=== PATIENT | male | born 1990 | race African-American/Black ===

== ENCOUNTER 2016-08-01 20:19 | Emergency (ER) | payer OTHER ==
[2016-08-01] MEDS ORDERED: ONDANSETRON 4MG/2ML VIAL (J2405) As Ordered ONE ×2 (21:01→21:59)
[2016-08-01 21:21] LABS: BASO # 0.1 K/mm3 (0.0-0.2); BASO % 1.2 % (0.0-1.0); EOS # 0.2 K/mm3 (0.0-0.50); EOS % 2.9 % (0.0-3.0); LARGE UNSTAINED CELL # 0.2 K/mm3 (0.0-0.4); LARGE UNSTAINED CELL % 2.7 % (0.0-4.0); LYMPH # 3.8 K/mm3 (1.5-6.5); MEAN CORPUSCULAR HEMOGLOBIN 26.4 pg (27.0-33.0); MEAN CORPUSCULAR HGB CONC 33.5 g/dl (32.0-36.5); MEAN CORPUSCULAR VOLUME 78.9 fl (80.0-96.0); MONO # 0.3 K/mm3 (0.0-0.8); MONO % 4.5 % (0.0-5.0); NEUTROPHILS # 1.6 K/mm3 (1.8-7.7); NEUTROPHILS % 26.8 % (36.0-66.0); PLATELET COUNT, AUTOMATED 155 k/mm3 (150-450); RED CELL DISTRIBUTION WIDTH 13.7 % (11.5-14.5); WHITE BLOOD COUNT 5.8 K/mm3 (4.0-10.0)
[2016-08-01 21:31] LABS: ALBUMIN/GLOBULIN RATIO 1.14 (1.00-1.93); ALKALINE PHOSPHATASE 83 U/L (45-117); ALT/SGPT 44 U/L (12-78); ANION GAP 9 MEQ/L (8-16); AST/SGOT 94 U/L (15-37); BILIRUBIN,DIRECT 0.2 MG/DL (0.0-0.2); BILIRUBIN,TOTAL 1.2 MG/DL (0.2-1.0); BLOOD UREA NITROGEN 16 MG/DL (7-18); CALCIUM LEVEL 8.3 MG/DL (8.5-10.1); CARBON DIOXIDE LEVEL 28 MEQ/L (21-32); CHLORIDE LEVEL 105 MEQ/L (98-107); GLOMERULAR FILTRATION RATE > 60.0 (>60); GLUCOSE, FASTING 110 MG/DL (70-105); SODIUM LEVEL 142 MEQ/L (136-145); TOTAL PROTEIN 7.5 GM/DL (6.4-8.2)
[2016-08-01] MEDS ORDERED: GASTROGRAFIN SOLUTION 30ML (Q9963) As Ordered ONE (23:16)
[2016-08-02] MEDS ORDERED: ISOVUE-370 76% 100ML VIAL (Q9967) As Ordered ONE (01:12)
[2016-08-02] MEDS ORDERED: POTASSIUM CHLORIDE 10 MEQ SR TABLET As Ordered ONE (02:12)
--- NOTE | 2016-08-02 02:50 | REPUSA ---
CLINICAL HISTORY: Abdominal pain. TECHNIQUE: Multiple axial, sagittal and coronal CT images were obtained through the abdomen and pelvi s after administration of intravenous contrast material. COMMENTS: The liver is of uniform attenuation without mass or defect. There is no intra or extrahepatic biliary ductal dilatation. The spleen is normal. The gallbladder is within normal limits. The pancreas is of normal contour and attenuation characteristics. There is no evidence of adrenal mass. Both kidneys demonstrate prompt and equal nephrograms. The kidneys are normal in size, shape and conf iguration. There is no evidence of renal or ureteral mass. No renal or ureteral calculi are identifie d. There is no hydroureter or hydronephrosis. No evidence for appendicitis. Large amount of fecal material is seen throughout the colon compatible with constipation. There are fluid-filled loops of small bowel bowel demonstrating wall thickening compatible with enteritis. No evidence for small or large bowel obstruction. There is no evidence of abdominal ascites or lymphadenopathy. There is no evidence of intrinsic or extrinsic bladder mass. There is no pelvic ascites or lymphadeno gina. Images of the lung bases show no evidence of pleural or parenchymal mass. There are no pleural effusi ons. The bony structures are free of lytic or blastic lesions. IMPRESSION: Constipation. Enteritis. Thank you for your kind referral of this patient.
--- NOTE | 2016-08-02 04:47 | EDDOCDS ---
Nurse's Notes [facility] Name: Rc Ortiz Age: 26 yrs Sex: Male : 1990 Arrival Date: 08/01/2016 Time: 20:19 Bed 17 Private MD: MSLg ROONEY Diagnosis: Noninfective gastroenteritis and colitis, unspecified Presentation: 08/01 20:28 Presenting complaint: EMS states: ate popeyes around 1600, took at nap and woke up af2 vomiting and diarrhea starting at 1940. Adult Sepsis Screening: The patient does not have new or worsening altered mentation. Patient's respiratory rate is less than 22. Systolic blood pressure is greater than 100. Patient has a qSOFA score of 0- Negative Sepsis Screen. Suicide/Homicide risk assessment- the patient denies having any suicidal and/or homicidal ideations and does not present with any other emotional, behavioral or mental health complaints. 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 Transition of care: patient was not received from another setting of care. 20:28 Acuity: LINA Level 3 af2 20:28 Method Of Arrival: Walkin/Carried/Asstd af2 Triage Assessment: 20:30 General: Appears ill, Behavior is cooperative. Pain: Denies pain. HIV screening NA for af2 this visit . Neurological: Level of Consciousness is awake, alert, obeys commands. Respiratory: Airway is patent Respiratory effort is even, unlabored. GI: Pt is actively vomiting undigested food, Stools are reported to be diarrhea. Derm: Skin is normal. Historical: - Allergies: No known drug Allergies; - Home Meds: 1. none - PMHx: none; - PSHx: umbilical hernia repair; - Social history: Smoking status: Patient states was never smoker of tobacco. No barriers to communication noted, The patient speaks fluent Syrian. - Family history: Not pertinent. - : The pt / caregiver states he / she is not on anticoagulants. Home medication list is obtained from the patient. - Exposure Risk Screening:: None identified. Screenin:00 Screening information is obtained from the patient. Fall risk: No risks identified. af2 Assistance ADL's: requires no assistance with activities of daily living. Abuse/DV Screen: The patient / caregiver reports he/she is: not in a situation that causes fear, pain or injury. Nutritional screening: No deficits noted. Advance Directives: Currently, there is no health care proxy. home support is adequate. Assessment: 20:59 General: Appears in no apparent distress, comfortable, Behavior is appropriate for age, af2 cooperative. GI: Abdomen is non- distended Pt is actively vomiting undigested food, Bowel sounds present X 4 quads. Abd is soft and non tender X 4 quads. Reports diarrhea, nausea, vomiting. Derm: Skin is normal. 22:04 General: pt continues vomiting, providers notified, orders received and pt medicated af2 per order.. 23:04 General: RN found patient sitting up in bed trying to vomit so he was unable to drink kas2 fluids. Dr. Thomas aware.. 08/02 00:00 General: Appears in no apparent distress, comfortable, Behavior is appropriate for age, af2 cooperative. General: resting quietly on stretcher with eyes closed, arouses easily to name.. Neurological: Level of Consciousness is awake, alert, obeys commands. 01:00 General: Appears in no apparent distress, comfortable, Behavior is appropriate for age, af2 cooperative. Neurological: Level of Consciousness is awake, alert, obeys commands. GI: Reports nausea. Derm: Skin is normal. 02:00 General: Appears in no apparent distress, comfortable, Behavior is appropriate for age, af2 cooperative, pt resting quietly on stretcher with eyes closed, rr even and unlabored. pt arouses easily to name. . 03:00 General: Appears in no apparent distress, comfortable, Behavior is appropriate for age, af2 cooperative. Neurological: Level of Consciousness is awake, alert, obeys commands. GI: Reports nausea, vomiting. Derm: Skin is pink, warm & dry. 04:04 General: Appears in no apparent distress, comfortable, Behavior is appropriate for age, af2 cooperative. Neurological: Level of Consciousness is awake, alert, obeys commands. Respiratory: Airway is patent Respiratory effort is even, unlabored. GI: Reports nausea, vomiting. Derm: Skin is normal. 04:45 General: Appears in no apparent distress, comfortable, Behavior is appropriate for age, af2 cooperative. Neurological: Level of Consciousness is awake, alert, obeys commands. Respiratory: Airway is patent Respiratory effort is even, unlabored. Derm: Skin is normal. Vital Signs: 08/01 20:20 Temp 96.6(O); sls1 20:27 BP 151 / 91 LA Sitting (auto/); Pulse 74; Resp 18 S; Pulse Ox 99% on R/A; Pain 0/10; af2 23:00 BP 131 / 80 Supine; Pulse 84 RA; kas2 23:01 BP 148 / 72 Sitting; Pulse 79 RA; kas2 23:01 BP 152 / 71 Standing; Pulse 81 RA; kas2 08/02 03:54 BP 122 / 68; Pulse 66; Resp 20; Temp 96.7(O); Pulse Ox 99% on R/A; Pain 0/10; jmv Vitals: 08/01 20:20 Log In Time N/A - ambulance arrival. [facility] ED Course: 20:20 Lizet Cabezas,YAMILE is Primary Nurse. [facility] 20:20 Patient visited by Apolonia Choi, Chrome Plater. jlm 20:20 [facility], [place] is Private Physician. jl 20:20 Patient moved to [facility] 20:29 Triage Initiated af2 20:30 Patient visited by Monique Birmingham RN. af2 20:45 Amor Thomas MD is Attending Physician. br1 20:51 Patient visited by Amor Thomas MD. br1 20:59 Lipase Sent. af2 20:59 Liver Profile Sent. af2 20:59 BMP Sent. af2 20:59 CBC with Diff Sent. af2 21:00 Patient visited by Monique Birmingham RN. af2 21:00 The patient / caregiver is instructed regarding the plan of care and ED course. af2 21:00 Inserted saline lock: 18 gauge in left antecubital area and blood collected. The af2 patient tolerated the procedure well. 21:52 Patient visited by Monique Birmingham RN. af2 23:04 Patient visited by Monique Birmingham RN. af2 23:05 Patient visited by Lilliana Parker RN. kas2 08/02 00:07 Patient visited by Monique Birmingham RN. af2 00:09 Attending Physician role handed off by Amor Thomas MD mm11 00:09 Jair Higuera DO is Attending Physician. mm11 00:16 Patient name changed from Rc\S\\S\Kamnain\S\ to Rc\S\ \S\Kamnain. EDMS 00:17 [facility] Payment Agreement was scanned into [employer] and attached to record. ks16 00:53 Patient visited by Monique Birmingham RN. af2 01:01 Patient visited by Monique Birmingham RN. af2 02:01 Patient visited by Monique Birmingham RN. af2 02:34 Patient visited by Monique Birmingham RN. af2 02:44 Patient visited by Monique Birmingham RN. af2 02:54 Primary Nurse role handed off by Lizet Cabezas RN jmb 03:10 CT ABD & PELVIS: IV and Oral Contrast Returned. EDMS 03:45 Patient visited by Jair Higuera DO. mm11 03:51 Patient visited by Monique Birmingham RN. af2 03:56 Patient visited by Armani Moncada PCA. jmv 04:05 Patient visited by Monique Birmingham RN. af2 04:26 [facility], [facility] is Referral Physician. mm11 04:46 Discontinued IV lock intact, bleeding controlled, pressure dressing applied, No af2 redness/swelling at site. No procedures done that require assistance. Administered Medications: 08/01 20:59 Drug: NS 0.9% 1000 ml [sodium chloride 0.9 % intravenous solution] Route: IV; Rate: af2 bolus; Site: left antecubital; 21:03 Drug: Ondansetron 4 mg [ondansetron HCl 2 mg/mL intravenous solution (2 mL)] Route: af2 IVP; Site: left antecubital; 21:53 Follow up: Response: No significant change. af2 22:03 Drug: NS 0.9% 1000 ml [sodium chloride 0.9 % intravenous solution] Route: IV; Rate: af2 bolus; Site: left antecubital; 22:04 Drug: Ondansetron 4 mg [ondansetron HCl 2 mg/mL intravenous solution (2 mL)] Route: af2 IVP; Site: left antecubital; 08/02 00:53 Follow up: Response: No significant change. af2 08/01 23:24 Drug: Diatrizoate Meglumine & Sodium 10 ml [diatrizoate meglumine and diat.sodium 66 af2 %-10 % oral solution (10 mL)] Route: PO; 08/02 02:13 Drug: Potassium Chloride 40 mEq [potassium chloride ER 10 mEq tablet,extended release af2 (4 tabs)] Route: PO; Order Results: Lab Order: CBC with Diff; SPEC'M 08/01/16 20:36 Test: WHITE BLOOD COUNT; Value: 5.8; Range: 4.0-10.0; Units: K/mm3; Status: F Test: RED BLOOD COUNT; Value: 4.89; Range: 4.30-6.10; Units: M/mm3; Status: F Test: HEMOGLOBIN; Value: 12.9; Range: 14.0-18.0; Abnormal: Below low normal; Units: g/dl; Status: F Test: HEMATOCRIT; Value: 38.5; Range: 42.0-52.0; Abnormal: Below low normal; Units: %; Status: F Test: MEAN CORPUSCULAR VOLUME; Value: 78.9; Range: 80.0-96.0; Abnormal: Below low normal; Units: fl; Status: F Test: MEAN CORPUSCULAR HEMOGLOBIN; Value: 26.4; Range: 27.0-33.0; Abnormal: Below low normal; Units: pg; Status: F Test: MEAN CORPUSCULAR HGB CONC; Value: 33.5; Range: 32.0-36.5; Units: g/dl; Status: F Test: RED CELL DISTRIBUTION WIDTH; Value: 13.7; Range: 11.5-14.5; Units: %; Status: F Test: PLATELET COUNT, AUTOMATED; Value: 155; Range: 150-450; Units: k/mm3; Status: F Test: NEUTROPHILS %; Value: 26.8; Range: 36.0-66.0; Abnormal: Below low normal; Units: %; Status: F Test: LYMPH %; Value: 62.0; Range: 24.0-44.0; Abnormal: Above high normal; Units: %; Status: F Test: MONO %; Value: 4.5; Range: 0.0-5.0; Units: %; Status: F Test: EOS %; Value: 2.9; Range: 0.0-3.0; Units: %; Status: F Test: BASO %; Value: 1.2; Range: 0.0-1.0; Abnormal: Above high normal; Units: %; Status: F Test: LARGE UNSTAINED CELL %; Value: 2.7; Range: 0.0-4.0; Units: %; Status: F Test: NEUTROPHILS #; Value: 1.6; Range: 1.8-7.7; Abnormal: Below low normal; Units: K/mm3; Status: F Test: LYMPH #; Value: 3.8; Range: 1.5-6.5; Units: K/mm3; Status: F Test: MONO #; Value: 0.3; Range: 0.0-0.8; Units: K/mm3; Status: F Test: EOS #; Value: 0.2; Range: 0.0-0.50; Units: K/mm3; Status: F Test: BASO #; Value: 0.1; Range: 0.0-0.2; Units: K/mm3; Status: F Test: LARGE UNSTAINED CELL #; Value: 0.2; Range: 0.0-0.4; Units: K/mm3; Status: F Lab Order: [facility]; SPEC'M 08/01/16 20:36 Test: GLUCOSE, FASTING; Value: 110; Range: 70-105; Abnormal: Above high normal; Units: MG/DL; Status: F Test: BLOOD UREA NITROGEN; Value: 16; Range: 7-18; Units: MG/DL; Status: F Test: CREATININE FOR GFR; Value: 1.20; Range: 0.70-1.30; Units: MG/DL; Status: F Test: GLOMERULAR FILTRATION RATE; Value: > 60.0; Range: >60; Status: F Test: SODIUM LEVEL; Value: 142; Range: 136-145; Units: MEQ/L; Status: F Test: POTASSIUM SERUM; Value: 3.0; Range: 3.5-5.1; Abnormal: Below low normal; Units: MEQ/L; Status: F Test: CHLORIDE LEVEL; Value: 105; Range: 98-107; Units: MEQ/L; Status: F Test: CARBON DIOXIDE LEVEL; Value: 28; Range: 21-32; Units: MEQ/L; Status: F Test: ANION GAP; Value: 9; Range: 8-16; Units: MEQ/L; Status: F Test: CALCIUM LEVEL; Value: 8.3; Range: 8.5-10.1; Abnormal: Below low normal; Units: MG/DL; Status: F Test Note: ; Units are mL/min/1.73 m2 Chronic Kidney Disease Staging per NKF: Stage I & II GFR >=60 Normal to Mildly Decreased Stage III GFR 30-59 Moderately Decreased Stage IV GFR 15-29 Severely Decreased Stage V GFR <15 Very Little GFR Left ESRD GFR <15 on CORE OVEN TENDER Lab Order: Liver Profile; SPEC'M 08/01/16 20:36 Test: AST/SGOT; Value: 94; Range: 15-37; Abnormal: Above high normal; Units: U/L; Status: F Test: ALT/SGPT; Value: 44; Range: 12-78; Units: U/L; Status: F Test: ALKALINE PHOSPHATASE; Value: 83; Range: 45-117; Units: U/L; Status: F Test: BILIRUBIN,TOTAL; Value: 1.2; Range: 0.2-1.0; Abnormal: Above high normal; Units: MG/DL; Status: F Test: BILIRUBIN,DIRECT; Value: 0.2; Range: 0.0-0.2; Units: MG/DL; Status: F Test: TOTAL PROTEIN; Value: 7.5; Range: 6.4-8.2; Units: GM/DL; Status: F Test: ALBUMIN; Value: 4.0; Range: 3.2-5.2; Units: GM/DL; Status: F Test: ALBUMIN/GLOBULIN RATIO; Value: 1.14; Range: 1.00-1.93; Status: F Lab Order: Lipase; SPEC'M 08/01/16 20:36 Test: LIPASE; Value: 198; Range: 73-393; Units: U/L; Status: F Radiology Order: CT ABD & PELVIS: IV and Oral Contrast Test: CT ABD & PELVIS: IV and Oral Contrast REASON FOR EXAMINATION: vomiting eval for sbo; ; CLINICAL HISTORY: Abdominal pain.; TECHNIQUE: Multiple axial, sagittal and coronal CT images were obtained through the abdomen and pelvi; s after administration of intravenous contrast material.; COMMENTS:; The liver is of uniform attenuation without mass or defect. There is no intra or extrahepatic biliary; ductal dilatation. The spleen is normal. The gallbladder is within normal limits. The pancreas is of; normal contour and attenuation characteristics. There is no evidence of adrenal mass.; Both kidneys demonstrate prompt and equal nephrograms. The kidneys are normal in size, shape and conf; iguration. There is no evidence of renal or ureteral mass. No renal or ureteral calculi are identifie; d. There is no hydroureter or hydronephrosis.; No evidence for appendicitis. Large amount of fecal material is seen throughout the colon compatible; with constipation. There are fluid-filled loops of small bowel bowel demonstrating wall thickening; compatible with enteritis. No evidence for small or large bowel obstruction. There is no evidence of; abdominal ascites or lymphadenopathy.; There is no evidence of intrinsic or extrinsic bladder mass. There is no pelvic ascites or lymphadeno; gina.; Images of the lung bases show no evidence of pleural or parenchymal mass. There are no pleural effusi; ons.; The bony structures are free of lytic or blastic lesions.; IMPRESSION:; Constipation.; Enteritis.; Thank you for your kind referral of this patient.; ; Outcome: 04:26 Discharge ordered by Provider. mm11 04:46 Discharge Assessment: Patient awake, alert and oriented x 3. No cognitive and/or af2 functional deficits noted. Patient verbalized understanding of disposition instructions. patient administered narcotics - no. The following High Risk Discharge criteria are identified: None. Discharged to home ambulatory, with friend. Condition: stable. Discharge instructions given to patient, Instructed on discharge instructions, follow up and referral plans. Demonstrated understanding of instructions, Pt was receptive of discharge instructions/ teaching. CT Study completed. Property :Personal belongings accompany Pt. 04:46 Patient left the ED. af2 Signatures: Dispatcher [employer] EDMS Jair Higuera DO DO mm11 Amor Thomas MD MD brNohemy Hendrix, RN RN sls1 Maged Amanda,RN RN Apolonia Jurado, Chrome Plater Unit Monique Sanchez,RN RN af2 Winsome Abrams, Reg Reg [email or web address] Lilliana Parker,YAMILE RN ryder2 Armani Moncada, MD PHYSICIAN DERMATOLOGIST MD PHYSICIAN DERMATOLOGIST jmv MTDD
--- NOTE | 2016-08-02 04:47 | EDDOCDS ---
Physician Documentation [facility] Name: Rc Ortiz Age: 26 yrs Sex: Male : 1990 Arrival Date: 08/01/2016 Time: 20:19 Bed 17 [facility] Disposition: 08/02/16 04:26 Discharged to Home/Self Care. Impression: Noninfective gastroenteritis and colitis, unspecified. - Condition is Stable. - Discharge Instructions: Viral Gastroenteritis, Viral Gastroenteritis, [id number]. - Prescriptions for Zofran 4 mg Oral Tablet - take 1 tablet by ORAL route 4 times per day As needed; 10 tablet. - Medication Reconciliation, Local Pharmacy Hours form. - [facility]; When: As needed; Reason: Continuance of care. - Problem is an acute exacerbation. - Symptoms have improved. - Notes: YOUR CT SHOWS YOU HAVE INFLAMMATION OF YOUR SMALL INTESTINES CONSISTANT WITH FOOD POISONING. BLOOD WORK IS NORMAL.FOLLOW UP WITH [facility] NEEDED. Historical: - Allergies: No known drug Allergies; - Home Meds: 1. none - PMHx: none; - PSHx: umbilical hernia repair; - Social history: Smoking status: Patient states was never smoker of tobacco. No barriers to communication noted, The patient speaks fluent Cook Islander. - Family history: Not pertinent. - : The pt / caregiver states he / she is not on anticoagulants. Home medication list is obtained from the patient. - Exposure Risk Screening:: None identified. Vital Signs: 08/01 20:20 Temp 96.6(O); sls1 20:27 BP 151 / 91 LA Sitting (auto/); Pulse 74; Resp 18 S; Pulse Ox 99% on R/A; Pain 0/10; af2 23:00 BP 131 / 80 Supine; Pulse 84 RA; kas2 23:01 BP 148 / 72 Sitting; Pulse 79 RA; kas2 23:01 BP 152 / 71 Standing; Pulse 81 RA; kas2 08/02 03:54 BP 122 / 68; Pulse 66; Resp 20; Temp 96.7(O); Pulse Ox 99% on R/A; Pain 0/10; jmv MDM: 08/01 20:52 IV Saline Lock ordered. br1 20:52 Ondansetron 4 mg IVP once ordered. br1 20:52 NS 0.9% 1000 ml IV at bolus once ordered. br1 20:53 CBC with Diff Ordered. EDMS 20:53 BMP Ordered. EDMS 20:53 Liver Profile Ordered. EDMS 20:53 Lipase Ordered. EDMS 21:33 CBC with Diff Reviewed. br1 21:39 BMP Reviewed. br1 21:39 Liver Profile Reviewed. br1 21:39 Lipase Reviewed. br1 21:39 Potassium Chloride Extended Release Tablet 40 mEq PO once ordered. br1 21:40 Orthostatic VS ordered. br1 21:58 Ondansetron 4 mg IVP once ordered. br1 21:58 NS 0.9% 1000 ml IV at bolus once ordered. br1 23:05 CT ABD & PELVIS: IV and Oral Contrast Ordered. EDMS 23:24 Diatrizoate Meglumine & Sodium Liquid 10 ml PO once; mix in 290cc of water; 1st cup at af2 2330, 2nd cup at 0000 ordered. 23:37 Financial registration complete. [email or web address] 08/02 00:17 [facility] Payment Agreement was scanned into [employer] and attached to record. ks 03:44 CT ABD & PELVIS: IV and Oral Contrast Reviewed. mm11 Administered Medications: 08/01 20:59 Drug: NS 0.9% 1000 ml [sodium chloride 0.9 % intravenous solution] Route: IV; Rate: af2 bolus; Site: left antecubital; 21:03 Drug: Ondansetron 4 mg [ondansetron HCl 2 mg/mL intravenous solution (2 mL)] Route: af2 IVP; Site: left antecubital; 21:53 Follow up: Response: No significant change. af2 22:03 Drug: NS 0.9% 1000 ml [sodium chloride 0.9 % intravenous solution] Route: IV; Rate: af2 bolus; Site: left antecubital; 22:04 Drug: Ondansetron 4 mg [ondansetron HCl 2 mg/mL intravenous solution (2 mL)] Route: af2 IVP; Site: left antecubital; 08/02 00:53 Follow up: Response: No significant change. af2 08/01 23:24 Drug: Diatrizoate Meglumine & Sodium 10 ml [diatrizoate meglumine and diat.sodium 66 af2 %-10 % oral solution (10 mL)] Route: PO; 08/02 02:13 Drug: Potassium Chloride 40 mEq [potassium chloride ER 10 mEq tablet,extended release af2 (4 tabs)] Route: PO; Signatures: Dispatcher [employer] Jair Escobar DO DO mm11 Amor Thomas MD MD br1 Monique Birmingham RN RN af2 Winsome Abrams, Reg Reg [email or web address] The chart was reviewed and I authenticate all verbal orders and agree with the evaluation and treatment provided.Corrections: (The following items were deleted from the chart) 08/01 23:04 22:43 Fluid Challenge ordered. br1 kas2 Attachments: 08/02 00:17 [facility] Payment Agreement [email or web address] MTDD
--- NOTE | 2016-08-04 05:48 | EDDOCDS ---
Physician Documentation [facility] Name: Rc Ortiz Age: 26 yrs Sex: Male : 1990 Arrival Date: 08/01/2016 Time: 20:19 Bed 17 [facility]: 08/02/16 04:26 Discharged to Home/Self Care. Impression: Noninfective gastroenteritis and colitis, unspecified. - Condition is Stable. - Discharge Instructions: Viral Gastroenteritis, Viral Gastroenteritis, [id number]. - Prescriptions for Zofran 4 mg Oral Tablet - take 1 tablet by ORAL route 4 times per day As needed; 10 tablet. - Medication Reconciliation, Local Pharmacy Hours form. - [facility]; When: As needed; Reason: Continuance of care. - Problem is an acute exacerbation. - Symptoms have improved. - Notes: YOUR CT SHOWS YOU HAVE INFLAMMATION OF YOUR SMALL INTESTINES CONSISTANT WITH FOOD POISONING. BLOOD WORK IS NORMAL.FOLLOW UP WITH [facility] NEEDED. Historical: - Allergies: No known drug Allergies; - Home Meds: 1. none - PMHx: none; - PSHx: umbilical hernia repair; - Social history: Smoking status: Patient states was never smoker of tobacco. No barriers to communication noted, The patient speaks fluent Moldovan. - Family history: Not pertinent. - : The pt / caregiver states he / she is not on anticoagulants. Home medication list is obtained from the patient. - Exposure Risk Screening:: None identified. Vital Signs: 08/01 20:20 Temp 96.6(O); sls1 20:27 BP 151 / 91 LA Sitting (auto/); Pulse 74; Resp 18 S; Pulse Ox 99% on R/A; Pain 0/10; af2 23:00 BP 131 / 80 Supine; Pulse 84 RA; kas2 23:01 BP 148 / 72 Sitting; Pulse 79 RA; kas2 23:01 BP 152 / 71 Standing; Pulse 81 RA; kas2 08/02 03:54 BP 122 / 68; Pulse 66; Resp 20; Temp 96.7(O); Pulse Ox 99% on R/A; Pain 0/10; jmv MDM: 08/01 20:52 IV Saline Lock ordered. br1 20:52 Ondansetron 4 mg IVP once ordered. br1 20:52 NS 0.9% 1000 ml IV at bolus once ordered. br1 20:53 CBC with Diff Ordered. EDMS 20:53 BMP Ordered. EDMS 20:53 Liver Profile Ordered. EDMS 20:53 Lipase Ordered. EDMS 21:33 CBC with Diff Reviewed. br1 21:39 BMP Reviewed. br1 21:39 Liver Profile Reviewed. br1 21:39 Lipase Reviewed. br1 21:39 Potassium Chloride Extended Release Tablet 40 mEq PO once ordered. br1 21:40 Orthostatic VS ordered. br1 21:58 Ondansetron 4 mg IVP once ordered. br1 21:58 NS 0.9% 1000 ml IV at bolus once ordered. br1 23:05 CT ABD & PELVIS: IV and Oral Contrast Ordered. EDMS 23:24 Diatrizoate Meglumine & Sodium Liquid 10 ml PO once; mix in 290cc of water; 1st cup at af2 2330, 2nd cup at 0000 ordered. 23:37 Financial registration complete. [email or web address] 08/02 00:17 [facility] Payment Agreement was scanned into [employer] and attached to record. ks 03:44 CT ABD & PELVIS: IV and Oral Contrast Reviewed. mm 20:37 T-Sheet-- Draft Copy was scanned into [employer] and attached to record. klr Administered Medications: 08/01 20:59 Drug: NS 0.9% 1000 ml [sodium chloride 0.9 % intravenous solution] Route: IV; Rate: af2 bolus; Site: left antecubital; 21:03 Drug: Ondansetron 4 mg [ondansetron HCl 2 mg/mL intravenous solution (2 mL)] Route: af2 IVP; Site: left antecubital; 21:53 Follow up: Response: No significant change. af2 22:03 Drug: NS 0.9% 1000 ml [sodium chloride 0.9 % intravenous solution] Route: IV; Rate: af2 bolus; Site: left antecubital; 22:04 Drug: Ondansetron 4 mg [ondansetron HCl 2 mg/mL intravenous solution (2 mL)] Route: af2 IVP; Site: left antecubital; 08/02 00:53 Follow up: Response: No significant change. af2 08/01 23:24 Drug: Diatrizoate Meglumine & Sodium 10 ml [diatrizoate meglumine and diat.sodium 66 af2 %-10 % oral solution (10 mL)] Route: PO; 08/02 02:13 Drug: Potassium Chloride 40 mEq [potassium chloride ER 10 mEq tablet,extended release af2 (4 tabs)] Route: PO; Signatures: Dispatcher [employer] Jair Escobar DO DO mm11 Amor Thomas MD MD br1 Monique Birmingham RN RN af2 Winsome Abrams, Reg Reg ks16 Zuleyma James klr The chart was reviewed and I authenticate all verbal orders and agree with the evaluation and treatment provided.Corrections: (The following items were deleted from the chart) 08/01 23:04 22:43 Fluid Challenge ordered. br1 kas2 Attachments: 08/02 00:17 [facility] Payment Agreement [email or web address] 20:37 T-Sheet-- Draft Copy klr Chart Complete MTDD
--- NOTE | 2016-08-04 05:48 | EDDOCDS ---
Physician Documentation [facility] Name: Rc Ortiz Age: 26 yrs Sex: Male : 1990 Arrival Date: 08/01/2016 Time: 20:19 Bed 17 [facility]: 08/02/16 04:26 Discharged to Home/Self Care. Impression: Noninfective gastroenteritis and colitis, unspecified. - Condition is Stable. - Discharge Instructions: Viral Gastroenteritis, Viral Gastroenteritis, [id number]. - Prescriptions for Zofran 4 mg Oral Tablet - take 1 tablet by ORAL route 4 times per day As needed; 10 tablet. - Medication Reconciliation, Local Pharmacy Hours form. - [facility]; When: As needed; Reason: Continuance of care. - Problem is an acute exacerbation. - Symptoms have improved. - Notes: YOUR CT SHOWS YOU HAVE INFLAMMATION OF YOUR SMALL INTESTINES CONSISTANT WITH FOOD POISONING. BLOOD WORK IS NORMAL.FOLLOW UP WITH [facility] NEEDED. Historical: - Allergies: No known drug Allergies; - Home Meds: 1. none - PMHx: none; - PSHx: umbilical hernia repair; - Social history: Smoking status: Patient states was never smoker of tobacco. No barriers to communication noted, The patient speaks fluent Nigerian. - Family history: Not pertinent. - : The pt / caregiver states he / she is not on anticoagulants. Home medication list is obtained from the patient. - Exposure Risk Screening:: None identified. Vital Signs: 08/01 20:20 Temp 96.6(O); sls1 20:27 BP 151 / 91 LA Sitting (auto/); Pulse 74; Resp 18 S; Pulse Ox 99% on R/A; Pain 0/10; af2 23:00 BP 131 / 80 Supine; Pulse 84 RA; kas2 23:01 BP 148 / 72 Sitting; Pulse 79 RA; kas2 23:01 BP 152 / 71 Standing; Pulse 81 RA; kas2 08/02 03:54 BP 122 / 68; Pulse 66; Resp 20; Temp 96.7(O); Pulse Ox 99% on R/A; Pain 0/10; jmv MDM: 08/01 20:52 IV Saline Lock ordered. br1 20:52 Ondansetron 4 mg IVP once ordered. br1 20:52 NS 0.9% 1000 ml IV at bolus once ordered. br1 20:53 CBC with Diff Ordered. EDMS 20:53 BMP Ordered. EDMS 20:53 Liver Profile Ordered. EDMS 20:53 Lipase Ordered. EDMS 21:33 CBC with Diff Reviewed. br1 21:39 BMP Reviewed. br1 21:39 Liver Profile Reviewed. br1 21:39 Lipase Reviewed. br1 21:39 Potassium Chloride Extended Release Tablet 40 mEq PO once ordered. br1 21:40 Orthostatic VS ordered. br1 21:58 Ondansetron 4 mg IVP once ordered. br1 21:58 NS 0.9% 1000 ml IV at bolus once ordered. br1 23:05 CT ABD & PELVIS: IV and Oral Contrast Ordered. EDMS 23:24 Diatrizoate Meglumine & Sodium Liquid 10 ml PO once; mix in 290cc of water; 1st cup at af2 2330, 2nd cup at 0000 ordered. 23:37 Financial registration complete. [email or web address] 08/02 00:17 [facility] Payment Agreement was scanned into [employer] and attached to record. ks 03:44 CT ABD & PELVIS: IV and Oral Contrast Reviewed. mm 20:37 T-Sheet-- Draft Copy was scanned into [employer] and attached to record. klr Administered Medications: 08/01 20:59 Drug: NS 0.9% 1000 ml [sodium chloride 0.9 % intravenous solution] Route: IV; Rate: af2 bolus; Site: left antecubital; 21:03 Drug: Ondansetron 4 mg [ondansetron HCl 2 mg/mL intravenous solution (2 mL)] Route: af2 IVP; Site: left antecubital; 21:53 Follow up: Response: No significant change. af2 22:03 Drug: NS 0.9% 1000 ml [sodium chloride 0.9 % intravenous solution] Route: IV; Rate: af2 bolus; Site: left antecubital; 22:04 Drug: Ondansetron 4 mg [ondansetron HCl 2 mg/mL intravenous solution (2 mL)] Route: af2 IVP; Site: left antecubital; 08/02 00:53 Follow up: Response: No significant change. af2 08/01 23:24 Drug: Diatrizoate Meglumine & Sodium 10 ml [diatrizoate meglumine and diat.sodium 66 af2 %-10 % oral solution (10 mL)] Route: PO; 08/02 02:13 Drug: Potassium Chloride 40 mEq [potassium chloride ER 10 mEq tablet,extended release af2 (4 tabs)] Route: PO; Signatures: Dispatcher [employer] Jair Escobar DO DO mm11 Amor Thomas MD MD br1 Monique Birmingham RN RN af2 Winsome Abrams, Reg Reg ks16 Zuleyma James klr The chart was reviewed and I authenticate all verbal orders and agree with the evaluation and treatment provided.Corrections: (The following items were deleted from the chart) 08/01 23:04 22:43 Fluid Challenge ordered. br1 kas2 Attachments: 08/02 00:17 [facility] Payment Agreement ks16 20:37 T-Sheet-- Draft Copy klr Chart Complete MTDD
--- NOTE | 2016-08-04 05:48 | EDDOCDS ---
Nurse's Notes [facility] Name: Rc Ortiz Age: 26 yrs Sex: Male : 1990 Arrival Date: 08/01/2016 Time: 20:19 Bed 17 Private MD: PALg ROONEY Diagnosis: Noninfective gastroenteritis and colitis, unspecified Presentation: 08/01 20:28 Presenting complaint: EMS states: ate popeyes around 1600, took at nap and woke up af2 vomiting and diarrhea starting at 1940. Adult Sepsis Screening: The patient does not have new or worsening altered mentation. Patient's respiratory rate is less than 22. Systolic blood pressure is greater than 100. Patient has a qSOFA score of 0- Negative Sepsis Screen. Suicide/Homicide risk assessment- the patient denies having any suicidal and/or homicidal ideations and does not present with any other emotional, behavioral or mental health complaints. 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 Transition of care: patient was not received from another setting of care. 20:28 Acuity: LINA Level 3 af2 20:28 Method Of Arrival: Walkin/Carried/Asstd af2 Triage Assessment: 20:30 General: Appears ill, Behavior is cooperative. Pain: Denies pain. HIV screening NA for af2 this visit . Neurological: Level of Consciousness is awake, alert, obeys commands. Respiratory: Airway is patent Respiratory effort is even, unlabored. GI: Pt is actively vomiting undigested food, Stools are reported to be diarrhea. Derm: Skin is normal. Historical: - Allergies: No known drug Allergies; - Home Meds: 1. none - PMHx: none; - PSHx: umbilical hernia repair; - Social history: Smoking status: Patient states was never smoker of tobacco. No barriers to communication noted, The patient speaks fluent Tuvaluan. - Family history: Not pertinent. - : The pt / caregiver states he / she is not on anticoagulants. Home medication list is obtained from the patient. - Exposure Risk Screening:: None identified. Screenin:00 Screening information is obtained from the patient. Fall risk: No risks identified. af2 Assistance ADL's: requires no assistance with activities of daily living. Abuse/DV Screen: The patient / caregiver reports he/she is: not in a situation that causes fear, pain or injury. Nutritional screening: No deficits noted. Advance Directives: Currently, there is no health care proxy. home support is adequate. Assessment: 20:59 General: Appears in no apparent distress, comfortable, Behavior is appropriate for age, af2 cooperative. GI: Abdomen is non- distended Pt is actively vomiting undigested food, Bowel sounds present X 4 quads. Abd is soft and non tender X 4 quads. Reports diarrhea, nausea, vomiting. Derm: Skin is normal. 22:04 General: pt continues vomiting, providers notified, orders received and pt medicated af2 per order.. 23:04 General: RN found patient sitting up in bed trying to vomit so he was unable to drink kas2 fluids. Dr. Thomas aware.. 08/02 00:00 General: Appears in no apparent distress, comfortable, Behavior is appropriate for age, af2 cooperative. General: resting quietly on stretcher with eyes closed, arouses easily to name.. Neurological: Level of Consciousness is awake, alert, obeys commands. 01:00 General: Appears in no apparent distress, comfortable, Behavior is appropriate for age, af2 cooperative. Neurological: Level of Consciousness is awake, alert, obeys commands. GI: Reports nausea. Derm: Skin is normal. 02:00 General: Appears in no apparent distress, comfortable, Behavior is appropriate for age, af2 cooperative, pt resting quietly on stretcher with eyes closed, rr even and unlabored. pt arouses easily to name. . 03:00 General: Appears in no apparent distress, comfortable, Behavior is appropriate for age, af2 cooperative. Neurological: Level of Consciousness is awake, alert, obeys commands. GI: Reports nausea, vomiting. Derm: Skin is pink, warm & dry. 04:04 General: Appears in no apparent distress, comfortable, Behavior is appropriate for age, af2 cooperative. Neurological: Level of Consciousness is awake, alert, obeys commands. Respiratory: Airway is patent Respiratory effort is even, unlabored. GI: Reports nausea, vomiting. Derm: Skin is normal. 04:45 General: Appears in no apparent distress, comfortable, Behavior is appropriate for age, af2 cooperative. Neurological: Level of Consciousness is awake, alert, obeys commands. Respiratory: Airway is patent Respiratory effort is even, unlabored. Derm: Skin is normal. Vital Signs: 08/01 20:20 Temp 96.6(O); sls1 20:27 BP 151 / 91 LA Sitting (auto/); Pulse 74; Resp 18 S; Pulse Ox 99% on R/A; Pain 0/10; af2 23:00 BP 131 / 80 Supine; Pulse 84 RA; kas2 23:01 BP 148 / 72 Sitting; Pulse 79 RA; kas2 23:01 BP 152 / 71 Standing; Pulse 81 RA; kas2 08/02 03:54 BP 122 / 68; Pulse 66; Resp 20; Temp 96.7(O); Pulse Ox 99% on R/A; Pain 0/10; jmv Vitals: 08/01 20:20 Log In Time N/A - ambulance arrival. [facility] ED Course: 20:20 Lizet Cabezas,YAMILE is Primary Nurse. [facility] 20:20 Patient visited by Apolonia Choi, Shipmaster. jlm 20:20 [facility] is Private Physician. jl 20:20 Patient moved to [facility] 20:29 Triage Initiated af2 20:30 Patient visited by Monique Birmingham RN. af2 20:45 Amor Thomas MD is Attending Physician. br1 20:51 Patient visited by Amor Thomas MD. br1 20:59 Lipase Sent. af2 20:59 Liver Profile Sent. af2 20:59 BMP Sent. af2 20:59 CBC with Diff Sent. af2 21:00 Patient visited by Monique Birmingham RN. af2 21:00 The patient / caregiver is instructed regarding the plan of care and ED course. af2 21:00 Inserted saline lock: 18 gauge in left antecubital area and blood collected. The af2 patient tolerated the procedure well. 21:52 Patient visited by Monique Birmingham RN. af2 23:04 Patient visited by Monique Birmingham RN. af2 23:05 Patient visited by Lilliana Parker RN. kas2 08/02 00:07 Patient visited by Monique Birmingham RN. af2 00:09 Attending Physician role handed off by Amor Thomas MD mm11 00:09 Jair Higuera DO is Attending Physician. mm11 00:16 Patient name changed from Rc\S\\S\Kamnain\S\ to Rc\S\ \S\Kamnain. EDMS 00:17 [facility] Payment Agreement was scanned into [employer] and attached to record. ks16 00:53 Patient visited by Monique Birmingham RN. af2 01:01 Patient visited by Monique Birmingham RN. af2 02:01 Patient visited by Monique Birmingham RN. af2 02:34 Patient visited by Monique Birmingham RN. af2 02:44 Patient visited by Monique Birmingham RN. af2 02:54 Primary Nurse role handed off by Lizet Cabezas RN jmb 03:10 CT ABD & PELVIS: IV and Oral Contrast Returned. EDMS 03:45 Patient visited by Jair Higuera DO. mm11 03:51 Patient visited by Monique Birmingham RN. af2 03:56 Patient visited by Armani Moncada PCA. jmv 04:05 Patient visited by Monique Birmingham RN. af2 04:26 [facility] is Referral Physician. mm11 04:46 Discontinued IV lock intact, bleeding controlled, pressure dressing applied, No af2 redness/swelling at site. No procedures done that require assistance. 20:37 T-Sheet-- Draft Copy was scanned into [employer] and attached to record. klr Administered Medications: 08/01 20:59 Drug: NS 0.9% 1000 ml [sodium chloride 0.9 % intravenous solution] Route: IV; Rate: af2 bolus; Site: left antecubital; 21:03 Drug: Ondansetron 4 mg [ondansetron HCl 2 mg/mL intravenous solution (2 mL)] Route: af2 IVP; Site: left antecubital; 21:53 Follow up: Response: No significant change. af2 22:03 Drug: NS 0.9% 1000 ml [sodium chloride 0.9 % intravenous solution] Route: IV; Rate: af2 bolus; Site: left antecubital; 22:04 Drug: Ondansetron 4 mg [ondansetron HCl 2 mg/mL intravenous solution (2 mL)] Route: af2 IVP; Site: left antecubital; 08/02 00:53 Follow up: Response: No significant change. af2 08/01 23:24 Drug: Diatrizoate Meglumine & Sodium 10 ml [diatrizoate meglumine and diat.sodium 66 af2 %-10 % oral solution (10 mL)] Route: PO; 08/02 02:13 Drug: Potassium Chloride 40 mEq [potassium chloride ER 10 mEq tablet,extended release af2 (4 tabs)] Route: PO; Order Results: Lab Order: CBC with Diff; SPEC'M 08/01/16 20:36 Test: WHITE BLOOD COUNT; Value: 5.8; Range: 4.0-10.0; Units: K/mm3; Status: F Test: RED BLOOD COUNT; Value: 4.89; Range: 4.30-6.10; Units: M/mm3; Status: F Test: HEMOGLOBIN; Value: 12.9; Range: 14.0-18.0; Abnormal: Below low normal; Units: g/dl; Status: F Test: HEMATOCRIT; Value: 38.5; Range: 42.0-52.0; Abnormal: Below low normal; Units: %; Status: F Test: MEAN CORPUSCULAR VOLUME; Value: 78.9; Range: 80.0-96.0; Abnormal: Below low normal; Units: fl; Status: F Test: MEAN CORPUSCULAR HEMOGLOBIN; Value: 26.4; Range: 27.0-33.0; Abnormal: Below low normal; Units: pg; Status: F Test: MEAN CORPUSCULAR HGB CONC; Value: 33.5; Range: 32.0-36.5; Units: g/dl; Status: F Test: RED CELL DISTRIBUTION WIDTH; Value: 13.7; Range: 11.5-14.5; Units: %; Status: F Test: PLATELET COUNT, AUTOMATED; Value: 155; Range: 150-450; Units: k/mm3; Status: F Test: NEUTROPHILS %; Value: 26.8; Range: 36.0-66.0; Abnormal: Below low normal; Units: %; Status: F Test: LYMPH %; Value: 62.0; Range: 24.0-44.0; Abnormal: Above high normal; Units: %; Status: F Test: MONO %; Value: 4.5; Range: 0.0-5.0; Units: %; Status: F Test: EOS %; Value: 2.9; Range: 0.0-3.0; Units: %; Status: F Test: BASO %; Value: 1.2; Range: 0.0-1.0; Abnormal: Above high normal; Units: %; Status: F Test: LARGE UNSTAINED CELL %; Value: 2.7; Range: 0.0-4.0; Units: %; Status: F Test: NEUTROPHILS #; Value: 1.6; Range: 1.8-7.7; Abnormal: Below low normal; Units: K/mm3; Status: F Test: LYMPH #; Value: 3.8; Range: 1.5-6.5; Units: K/mm3; Status: F Test: MONO #; Value: 0.3; Range: 0.0-0.8; Units: K/mm3; Status: F Test: EOS #; Value: 0.2; Range: 0.0-0.50; Units: K/mm3; Status: F Test: BASO #; Value: 0.1; Range: 0.0-0.2; Units: K/mm3; Status: F Test: LARGE UNSTAINED CELL #; Value: 0.2; Range: 0.0-0.4; Units: K/mm3; Status: F Lab Order: [facility]; SPEC'M 08/01/16 20:36 Test: GLUCOSE, FASTING; Value: 110; Range: 70-105; Abnormal: Above high normal; Units: MG/DL; Status: F Test: BLOOD UREA NITROGEN; Value: 16; Range: 7-18; Units: MG/DL; Status: F Test: CREATININE FOR GFR; Value: 1.20; Range: 0.70-1.30; Units: MG/DL; Status: F Test: GLOMERULAR FILTRATION RATE; Value: > 60.0; Range: >60; Status: F Test: SODIUM LEVEL; Value: 142; Range: 136-145; Units: MEQ/L; Status: F Test: POTASSIUM SERUM; Value: 3.0; Range: 3.5-5.1; Abnormal: Below low normal; Units: MEQ/L; Status: F Test: CHLORIDE LEVEL; Value: 105; Range: 98-107; Units: MEQ/L; Status: F Test: CARBON DIOXIDE LEVEL; Value: 28; Range: 21-32; Units: MEQ/L; Status: F Test: ANION GAP; Value: 9; Range: 8-16; Units: MEQ/L; Status: F Test: CALCIUM LEVEL; Value: 8.3; Range: 8.5-10.1; Abnormal: Below low normal; Units: MG/DL; Status: F Test Note: ; Units are mL/min/1.73 m2 Chronic Kidney Disease Staging per NKF: Stage I & II GFR >=60 Normal to Mildly Decreased Stage III GFR 30-59 Moderately Decreased Stage IV GFR 15-29 Severely Decreased Stage V GFR <15 Very Little GFR Left ESRD GFR <15 on FILM WAXER Lab Order: Liver Profile; SPEC'M 08/01/16 20:36 Test: AST/SGOT; Value: 94; Range: 15-37; Abnormal: Above high normal; Units: U/L; Status: F Test: ALT/SGPT; Value: 44; Range: 12-78; Units: U/L; Status: F Test: ALKALINE PHOSPHATASE; Value: 83; Range: 45-117; Units: U/L; Status: F Test: BILIRUBIN,TOTAL; Value: 1.2; Range: 0.2-1.0; Abnormal: Above high normal; Units: MG/DL; Status: F Test: BILIRUBIN,DIRECT; Value: 0.2; Range: 0.0-0.2; Units: MG/DL; Status: F Test: TOTAL PROTEIN; Value: 7.5; Range: 6.4-8.2; Units: GM/DL; Status: F Test: ALBUMIN; Value: 4.0; Range: 3.2-5.2; Units: GM/DL; Status: F Test: ALBUMIN/GLOBULIN RATIO; Value: 1.14; Range: 1.00-1.93; Status: F Lab Order: Lipase; SPEC'M 08/01/16 20:36 Test: LIPASE; Value: 198; Range: 73-393; Units: U/L; Status: F Radiology Order: CT ABD & PELVIS: IV and Oral Contrast Test: CT ABD & PELVIS: IV and Oral Contrast REASON FOR EXAMINATION: vomiting eval for sbo; ; CLINICAL HISTORY: Abdominal pain.; TECHNIQUE: Multiple axial, sagittal and coronal CT images were obtained through the abdomen and pelvi; s after administration of intravenous contrast material.; COMMENTS:; The liver is of uniform attenuation without mass or defect. There is no intra or extrahepatic biliary; ductal dilatation. The spleen is normal. The gallbladder is within normal limits. The pancreas is of; normal contour and attenuation characteristics. There is no evidence of adrenal mass.; Both kidneys demonstrate prompt and equal nephrograms. The kidneys are normal in size, shape and conf; iguration. There is no evidence of renal or ureteral mass. No renal or ureteral calculi are identifie; d. There is no hydroureter or hydronephrosis.; No evidence for appendicitis. Large amount of fecal material is seen throughout the colon compatible; with constipation. There are fluid-filled loops of small bowel bowel demonstrating wall thickening; compatible with enteritis. No evidence for small or large bowel obstruction. There is no evidence of; abdominal ascites or lymphadenopathy.; There is no evidence of intrinsic or extrinsic bladder mass. There is no pelvic ascites or lymphadeno; gina.; Images of the lung bases show no evidence of pleural or parenchymal mass. There are no pleural effusi; ons.; The bony structures are free of lytic or blastic lesions.; IMPRESSION:; Constipation.; Enteritis.; Thank you for your kind referral of this patient.; ; Outcome: 04:26 Discharge ordered by Provider. mm11 04:46 Discharge Assessment: Patient awake, alert and oriented x 3. No cognitive and/or af2 functional deficits noted. Patient verbalized understanding of disposition instructions. patient administered narcotics - no. The following High Risk Discharge criteria are identified: None. Discharged to home ambulatory, with friend. Condition: stable. Discharge instructions given to patient, Instructed on discharge instructions, follow up and referral plans. Demonstrated understanding of instructions, Pt was receptive of discharge instructions/ teaching. CT Study completed. Property :Personal belongings accompany Pt. 04:46 Patient left the ED. af2 Signatures: Dispatcher [employer] EDMS Jair Higuera DO DO mm11 Amor Thomas MD MD br1 Nohemy Bains, RN RN sls1 Maged Amanda RN RN Apolonia Jurado, Shipmaster Unit jlMonique Aguirre RN RN af2 Winsome Abrams, Reg Reg ks16 Lilliana Parker RN RN kas2 Redder, Kathie klr Vega, Jose, TO BIOMEDICAL SERVICE ENGINEER jmv Chart Complete MTDD
== END 2016-08-02 04:46 | disposition home or self-care (01) ==
LOC: M ED 20:19
DX: E87.6 Hypokalemia (principal); R11.2 Nausea with vomiting, unspecified
CPT/HCPCS: 36415; 74177; 80048; 80076; 83690; 85025; 96374; 96376; 99284; J2405; Q9963; Q9967